=== PATIENT | male | born 1975 | race Two or more races ===

== ENCOUNTER 2018-09-21 16:59 | Emergency (ER) | payer SELFPAY ==
[~2018-09-21] VITALS: Ht 170.2 cm; Wt 140.0 kg
[2018-09-21] MEDS ORDERED: ONDANSETRON HCL 4MG/2ML INJ IV STA (17:18)
[2018-09-21] MEDS ORDERED: SODIUM CHLORIDE 0.9% 1,000 ML IV ONE (17:18)
[2018-09-21] MEDS ORDERED: NALOXONE HCL 1 MG/ML 2ML VIAL IV ONE ×4 (17:30→21:45)
[2018-09-21 18:40] LABS: BG BASE EXCESS 0.1 mmol/L (-2.0-2.0); BG CARBOXYHEMOGLOBIN 0.1 % (0.5-1.5); BG DEOXYHEMOGLOBIN 4.3 % (0.0-5.0); BG FRACTION INSPIRED OXYGEN 21; BG HCO3 ACT 24.7 mmol/L (22.0-26.0); BG METHEMOGLOBIN 0.3 % (0.0-1.5); BG OXYGEN SATURATION 95.7 % (92.0-98.5); BG OXYHEMOGLOBIN 95.3 % (94.0-97.0); BG PH 7.408 (7.350-7.450); BG PO2 86.1 mmHg (75.0-100.0); BG SAMPLE SITE RIGHT RADIAL; BG TOTAL HEMOGLOBIN 12.4 g/dL (12.0-18.0); BG VENT MODE ROOM AIR
[2018-09-21 18:43] LABS: BASOPHILS % 0.3 % (0.0-2.0); EOSINOPHILS % 0.2 % (0.0-5.0); HEMATOCRIT. 36.3 % (42.0-52.0); HEMOGLOBIN. 11.9 g/dL (14.0-18.0); LYMPHOCYTES % 8.3 % (20.0-50.0); MEAN CORPUSCULAR HEMOGLOBIN 28.5 pg (28.0-32.0); MEAN CORPUSCULAR VOLUME 87.4 fL (80.0-94.0); MEAN PLATELET VOLUME 7.5 fl (7.4-10.4); MONOCYTES % 5.5 % (2.0-8.0); NEUTROPHILS % 85.7 % (40.0-76.0); PLATELET 343 x1000/uL (130-400); RED BLOOD CELL COUNT 4.15 mill/uL (4.7-6.1); RED CELL DISTRIBUTION WIDTH 14.3 % (11.6-14.6)
[2018-09-21 18:44] LABS: CHLORIDE 105 mEq/L (98-107)
[2018-09-21 18:50] LABS: ETHANOL BLOOD < 10 mg/dL
[2018-09-21 19:02] LABS: CLARITY URINE CLEAR (CLEAR); COLOR URINE YELLOW (YELLOW); KETONES URINE 2+ (NEGATIVE); LEUKOCYTE ESTERASE URINE NEGATIVE (NEGATIVE); NITRITE URINE NEGATIVE (NEGATIVE); OCCULT BLOOD URINE NEGATIVE (NEGATIVE); PROTEIN URINE NEGATIVE (NEGATIVE); SPECIFIC GRAVITY URINE 1.011 (1.005-1.030); UROBILINOGEN URINE 0.2 E.U./dL (0.2-1.0)
[2018-09-21 19:17] LABS: *AMPHETAMINES SCREEN URINE NEGATIVE (NEGATIVE); *BARBITURATES SCREEN URINE NEGATIVE (NEGATIVE); *BENZODIAZEPINES SCREEN URINE NEGATIVE (NEGATIVE); *COCAINE SCREEN URINE NEGATIVE (NEGATIVE); CANNABINOID URINE SCREEN NEGATIVE (NEGATIVE); METHADONE URINE SCREEN NEGATIVE (NEGATIVE); OPIATES URINE SCREEN NEGATIVE (NEGATIVE); PHENCYCLIDINE URINE SCREEN NEGATIVE (NEGATIVE)
[2018-09-21] MEDS ORDERED: LABETALOL 5MG/ML SYR 20 MG/4 ML SYRINGE IV ONE (20:30)
[2018-09-21] MEDS ORDERED: CEFEPIME 1,000 MG in DEXTROSE 5% WATER 50 ML IV SCH (21:30)
[2018-09-21] MEDS ORDERED: ONDANSETRON HCL 4MG/2ML INJ IV PRN (21:30)
[2018-09-21] MEDS ORDERED: DEXTROSE 50% WATER 50ML SYRINGE IV PRN (21:30)
[2018-09-21] MEDS: METRONIDAZOLE 500 MG PREMIX 100 ML IV SCH (21:30)
[2018-09-21] MEDS ORDERED: IPRATROPIUM/ALBUTEROL 0.5-3(2.5)MG/3ML NEB HHN PRN (21:30)
[2018-09-21] MEDS ORDERED: CEFEPIME 1,000 MG in DEXTROSE 5% WATER 50 ML IV NR (23:45)
[2018-09-21] MEDS ORDERED: METRONIDAZOLE 500 MG PREMIX 100 ML IV NR (23:45)
[2018-09-22] MEDS ORDERED: DEXT 5%/0.45% NACL 1000ML 1,000 ML IV SCH
[2018-09-22] MEDS: METRONIDAZOLE 500 MG PREMIX 100 ML IV SCH ×3 (05:30→08:39)
[2018-09-22] MEDS ORDERED: HYDRALAZINE 20MG/ML VIAL IV SCH (06:30)
[2018-09-22 06:39] LABS: BASOPHILS % 0.2 % (0.0-2.0); EOSINOPHILS % 0.4 % (0.0-5.0); HEMATOCRIT. 37.8 % (42.0-52.0); HEMOGLOBIN. 12.3 g/dL (14.0-18.0); LYMPHOCYTES % 9.8 % (20.0-50.0); MEAN CORPUSCULAR HEMOGLOBIN 28.3 pg (28.0-32.0); MEAN CORPUSCULAR VOLUME 86.6 fL (80.0-94.0); MEAN PLATELET VOLUME 7.6 fl (7.4-10.4); MONOCYTES % 5.1 % (2.0-8.0); NEUTROPHILS % 84.5 % (40.0-76.0); PLATELET 401 x1000/uL (130-400); RED BLOOD CELL COUNT 4.36 mill/uL (4.7-6.1); RED CELL DISTRIBUTION WIDTH 14.1 % (11.6-14.6)
[2018-09-22 06:42] LABS: CHLORIDE 106 mEq/L (98-107)
[2018-09-22] MEDS ORDERED: INSULIN LISPRO 100 UNITS/ML SUBCUT SCH (08:20)
[2018-09-22] MEDS ORDERED: BLOOD SUGAR DIAGNOSTIC STRIP TEST SCH (09:00)
[2018-09-22] MEDS ORDERED: LABETALOL 5MG/ML SYR 20 MG/4 ML SYRINGE IV ONE (09:45)
[2018-09-22] MEDS ORDERED: NIFEDIPINE XL 60MG TAB PO SCH (10:00)
[2018-09-22] MEDS ORDERED: CEFEPIME 1,000 MG in DEXTROSE 5% WATER 50 ML IV SCH (10:00)
[2018-09-22] MEDS ORDERED: LOSARTAN POTASSIUM 100 MG TABLET PO SCH (10:00)
[2018-09-22] MEDS ORDERED: HYDRALAZINE 20MG/ML VIAL IV PRN (10:15)
[2018-09-22 10:18] VITALS: BP 179/101
== END 2018-09-22 10:38 | disposition left against medical advice (07) ==
LOC: ER 16:59 → EDBEDREQ 20:25 → EDBEDREQTM 20:25 → ER 09-22 10:38 → CANBEDREQ 09-22 11:56
DX: T65.91XA Toxic effect of unspecified substance, accidental (unintentional), initial encounter (principal); Y92.9 Unspecified place or not applicable; I16.0 Hypertensive urgency; F99 Mental disorder, not otherwise specified; G92 Toxic encephalopathy; I10 Essential (primary) hypertension; E11.9 Type 2 diabetes mellitus without complications
CPT/HCPCS: 36415; 36600; 70450; 71045; 80048; 80053; 80061; 80305; 80307; 80320; 80329; 81003; 82375; 82805; 82962; 83036; 83605; 84443; 85025; 87040; 93970; 96365; 96375; 99291; J0360; J0692; J2310; J2405; J3490; J7030; J7060; A4315; G0480